=== PATIENT | female | born 1985 | race Caucasian/White ===

== ENCOUNTER 2017-08-27 06:12 | Day surgery (SDC) | payer OTHER ==
[2017-08-27] VITALS (7 sets, daily range): BP systolic 133–152; BP diastolic 85–100; PULSE 85–99; TEMP 97.8–98
[~2017-08-27] VITALS: Ht 167.6 cm; Wt 87.8 kg
[2017-08-27] MEDS ORDERED: COZAAR100 MG PO (07:06)
[2017-08-27] MEDS ORDERED: COREG CR40 MG PO (07:07)
[2017-08-27] MEDS ORDERED: HYZAAR 12.5 MG-1 TAB PO (07:07)
[2017-08-27] MEDS ORDERED: ZOLOFT 100MG100 MG PO (07:08)
[2017-08-27] MEDS ORDERED: REMERON 15M15 MG/TA1 PO (07:08)
[2017-08-27] MEDS ORDERED: PYRIDIUM 100MG100 MG PO (10:10)
[2017-08-27] MEDS ORDERED: ULTRAM 50MG TAB50 MG PO (10:10)
== END 2017-08-27 11:03 | disposition home or self-care (01) ==
LOC: SDCO 06:12
DX: R31.29 Other microscopic hematuria (principal); R10.9 Unspecified abdominal pain; I10 Essential (primary) hypertension; Z79.899 Other long term (current) drug therapy; F43.10 Post-traumatic stress disorder, unspecified
CPT/HCPCS: J1100; J1170; J1885; J2405; J2704; J3010; J7120; Q9967